=== PATIENT | male | born 1970 | race African-American/Black ===

== ENCOUNTER 2019-03-26 07:33 | Emergency (ER) | payer MEDICAID ==
[~2019-03-26] VITALS: Ht 172.7 cm; Wt 73.0 kg
[~2019-03-26 07:33] MED LIST: BUPR100T5 PO; QUET25TA PO
[2019-03-26] MEDS ORDERED: ONDANSETRON HCL 4MG/2ML INJ IV STA (08:57)
[2019-03-26] MEDS ORDERED: SODIUM CHLORIDE 0.9% 1,000 ML IV ONE (08:57)
[2019-03-26] MEDS ORDERED: PANTOPRAZOLE SODIUM 40 MG/VIAL IV STA (08:57)
[2019-03-26] MEDS ORDERED: MORPHINE SULFATE 2 MG/ML CPJ (NOT FOR IM USE) IV ONE (09:15)
[2019-03-26 09:38] LABS: HEMATOCRIT. 38.5 % (42.0-52.0); MEAN CORPUSCULAR HEMOGLOBIN 30.8 pg (28.0-32.0); MEAN CORPUSCULAR VOLUME 91.1 fL (80.0-94.0); MEAN PLATELET VOLUME 9.1 fl (7.4-10.4); PLATELET 216 x1000/uL (130-400); RED BLOOD CELL COUNT 4.23 mill/uL (4.7-6.1); RED CELL DISTRIBUTION WIDTH 13.1 % (11.6-14.6)
[2019-03-26 09:40] LABS: CHLORIDE 104 mEq/L (98-107)
[2019-03-26 09:42] LABS: INR 1.1; PROTHROMBIN TIME 11.5 sec (9.6-11.0)
[2019-03-26 10:43] LABS: PLATELET ESTIMATE NORMAL
[2019-03-26 11:17] LABS: CLARITY URINE CLEAR (CLEAR); COLOR URINE YELLOW (YELLOW); KETONES URINE TRACE (NEGATIVE); LEUKOCYTE ESTERASE URINE NEGATIVE (NEGATIVE); NITRITE URINE NEGATIVE (NEGATIVE); OCCULT BLOOD URINE NEGATIVE (NEGATIVE); PH URINE 7.5 (4.5-8.0); PROTEIN URINE NEGATIVE (NEGATIVE); SPECIFIC GRAVITY URINE 1.022 (1.005-1.030)
[2019-03-26 12:44] VITALS: BP 127/83
== END 2019-03-26 12:52 | disposition home or self-care (01) ==
LOC: ER 07:33
DX: R10.84 Generalized abdominal pain (principal); J06.9 Acute upper respiratory infection, unspecified; F20.9 Schizophrenia, unspecified; Z88.8 Allergy status to other drugs, medicaments and biological substances
CPT/HCPCS: 36415; 71045; 74176; 80053; 81003; 83690; 85025; 85610; 87804; 96361; 96374; 96375; 99284; C9113; J2270; J2405; J7030

== ENCOUNTER 2019-03-29 10:22 | Emergency (ER) | payer MEDICAID ==
[~2019-03-29] VITALS: Ht 172.7 cm; Wt 75.0 kg
[2019-03-29 10:42] VITALS: BP 116/72
[2019-03-29] MEDS ORDERED: ACETAMINOPHEN 500MG TABLET PO ONE (12:15)
== END 2019-03-29 14:38 | disposition home or self-care (01) ==
LOC: ER 10:22
DX: L84 Corns and callosities (principal); M25.774 Osteophyte, right foot; F20.9 Schizophrenia, unspecified; Z88.8 Allergy status to other drugs, medicaments and biological substances
CPT/HCPCS: 99282

== ENCOUNTER 2019-04-02 22:27 | Emergency (ER) | payer MEDICAID ==
[~2019-04-02] VITALS: Ht 172.7 cm; Wt 75.0 kg
[2019-04-03 03:36] LABS: CHLORIDE 105 mEq/L (98-107)
[2019-04-03 03:37] LABS: BASOPHILS % 0.5 % (0.0-2.0); EOSINOPHILS % 2.4 % (0.0-5.0); HEMATOCRIT. 38.2 % (42.0-52.0); HEMOGLOBIN. 12.7 g/dL (14.0-18.0); LYMPHOCYTES % 54.2 % (20.0-50.0); MEAN CORPUSCULAR HEMOGLOBIN 30.2 pg (28.0-32.0); MEAN CORPUSCULAR VOLUME 90.6 fL (80.0-94.0); MEAN PLATELET VOLUME 9.2 fl (7.4-10.4); MONOCYTES % 13.8 % (2.0-8.0); NEUTROPHILS % 29.1 % (40.0-76.0); PLATELET 188 x1000/uL (130-400); RED BLOOD CELL COUNT 4.22 mill/uL (4.7-6.1); RED CELL DISTRIBUTION WIDTH 13.6 % (11.6-14.6)
[2019-04-03 03:41] LABS: ETHANOL BLOOD < 10 mg/dL
[2019-04-03 06:02] LABS: CLARITY URINE CLOUDY (CLEAR); COLOR URINE YELLOW (YELLOW); KETONES URINE NEGATIVE (NEGATIVE); LEUKOCYTE ESTERASE URINE NEGATIVE (NEGATIVE); NITRITE URINE NEGATIVE (NEGATIVE); OCCULT BLOOD URINE NEGATIVE (NEGATIVE); PROTEIN URINE NEGATIVE (NEGATIVE); SPECIFIC GRAVITY URINE 1.023 (1.005-1.030)
[2019-04-03 06:22] LABS: *AMPHETAMINES SCREEN URINE NEGATIVE (NEGATIVE); CANNABINOID URINE SCREEN NEGATIVE (NEGATIVE); METHADONE URINE SCREEN NEGATIVE (NEGATIVE); OPIATES URINE SCREEN NEGATIVE (NEGATIVE); PHENCYCLIDINE URINE SCREEN NEGATIVE (NEGATIVE)
[2019-04-03 06:23] LABS: *BARBITURATES SCREEN URINE NEGATIVE (NEGATIVE); *BENZODIAZEPINES SCREEN URINE NEGATIVE (NEGATIVE); *COCAINE SCREEN URINE NEGATIVE (NEGATIVE)
[2019-04-03 20:03] VITALS: BP 133/53
== END 2019-04-03 20:13 ==
LOC: ER 22:27
DX: R45.851 Suicidal ideations (principal); F31.9 Bipolar disorder, unspecified; F20.9 Schizophrenia, unspecified; Z88.8 Allergy status to other drugs, medicaments and biological substances
CPT/HCPCS: 36415; 80053; 80305; 80320; 81003; 85025; 99283; 99285; G0480

== ENCOUNTER 2019-04-12 07:06 | Emergency (ER) | payer MEDICAID ==
[~2019-04-12] VITALS: Ht 172.7 cm; Wt 73.0 kg
[2019-04-12 07:26] VITALS: BP 134/55
[2019-04-12] MEDS ORDERED: IBUPROFEN 600MG TABLET PO ONE (08:00)
== END 2019-04-12 07:57 | disposition home or self-care (01) ==
LOC: ER 07:34
DX: R22.0 Localized swelling, mass and lump, head (principal); F32.9 Major depressive disorder, single episode, unspecified; F17.200 Nicotine dependence, unspecified, uncomplicated; Z88.8 Allergy status to other drugs, medicaments and biological substances
CPT/HCPCS: 99282

== ENCOUNTER 2019-04-16 17:54 | Emergency (ER) | payer MEDICAID ==
[~2019-04-16] VITALS: Ht 172.7 cm; Wt 73.0 kg
[2019-04-16] MEDS ORDERED: ONDANSETRON HCL 4MG/2ML INJ IV STA (21:01)
[2019-04-16] MEDS ORDERED: SODIUM CHLORIDE 0.9% 1,000 ML IV ONE (21:01)
[2019-04-16 21:21] LABS: BASOPHILS % 0.9 % (0.0-2.0); EOSINOPHILS % 1.5 % (0.0-5.0); HEMATOCRIT. 37.2 % (42.0-52.0); HEMOGLOBIN. 12.6 g/dL (14.0-18.0); LYMPHOCYTES % 46.7 % (20.0-50.0); MEAN CORPUSCULAR HEMOGLOBIN 30.2 pg (28.0-32.0); MEAN CORPUSCULAR VOLUME 89.4 fL (80.0-94.0); MEAN PLATELET VOLUME 8.9 fl (7.4-10.4); MONOCYTES % 12.4 % (2.0-8.0); NEUTROPHILS % 38.5 % (40.0-76.0); PLATELET 211 x1000/uL (130-400); RED BLOOD CELL COUNT 4.16 mill/uL (4.7-6.1); RED CELL DISTRIBUTION WIDTH 13.4 % (11.6-14.6)
[2019-04-16 21:28] LABS: CHLORIDE 106 mEq/L (98-107)
[2019-04-16] MEDS ORDERED: KETOROLAC 30MG/ML VIAL IV ONE (21:45)
[2019-04-16 23:04] VITALS: BP 137/82
== END 2019-04-16 23:05 | disposition home or self-care (01) ==
LOC: ER 18:14
DX: R51 Headache (principal); R11.2 Nausea with vomiting, unspecified; D50.9 Iron deficiency anemia, unspecified; F32.9 Major depressive disorder, single episode, unspecified; F17.210 Nicotine dependence, cigarettes, uncomplicated; Z88.8 Allergy status to other drugs, medicaments and biological substances
CPT/HCPCS: 36415; 80053; 83690; 85025; 93005; 96361; 96374; 96375; 99284; J1885; J2405; J7030

== ENCOUNTER 2021-02-24 09:02 | Emergency (ER) | payer MEDICAID ==
[~2021-02-24] VITALS: Ht 172.7 cm; Wt 82.0 kg
[2021-02-24] MEDS ORDERED: ONDANSETRON HCL 4MG/2ML INJ IV STA (09:20)
[2021-02-24] MEDS ORDERED: KETOROLAC 30MG/ML VIAL IV STA (09:20)
[2021-02-24] MEDS ORDERED: SODIUM CHLORIDE 0.9% 1,000 ML IV ONE (09:30)
[2021-02-24 09:50] LABS: BASOPHILS % 1.2 % (0.0-2.0); EOSINOPHILS % 1.8 % (0.0-5.0); HEMOGLOBIN. 13.9 g/dL (14.0-18.0); LYMPHOCYTES % 35.5 % (20.0-50.0); MEAN CORPUSCULAR HEMOGLOBIN 30.9 pg (28.0-32.0); MEAN CORPUSCULAR VOLUME 93.1 fL (80.0-94.0); MEAN PLATELET VOLUME 9.4 fl (7.4-10.4); NEUTROPHILS % 47.5 % (40.0-76.0); PLATELET 186 x1000/uL (130-400); RED BLOOD CELL COUNT 4.51 mill/uL (4.7-6.1)
[2021-02-24 09:57] LABS: CHLORIDE 106 mEq/L (98-107)
[2021-02-24 10:01] LABS: ETHANOL BLOOD < 10 mg/dL
[2021-02-24 11:00] VITALS: BP 116/92
[2021-02-24] MEDS ORDERED: IBUP-2030 MT (13:02)
[2021-02-24] MEDS ORDERED: ONDA4TAB11 PO (13:02)
== END 2021-02-24 13:49 | disposition home or self-care (01) ==
LOC: ER 09:02
DX: R07.89 Other chest pain (principal); F12.10 Cannabis abuse, uncomplicated; Z88.8 Allergy status to other drugs, medicaments and biological substances; Z86.59 Personal history of other mental and behavioral disorders
CPT/HCPCS: 36415; 71045; 80053; 80320; 83690; 83880; 84484; 85025; 93005; 96361; 96374; 96375; 99285; J1885; J2405; J7030; G0480

== ENCOUNTER 2021-03-16 22:40 | Emergency (ER) | payer MEDICAID ==
[~2021-03-16] VITALS: Ht 172.7 cm; Wt 84.0 kg
[~2021-03-16 22:40] MED LIST changes: +IBUP-2030 MT; +ONDA4TAB11 PO
[2021-03-16 22:47] VITALS: BP 126/76
== END 2021-03-17 08:05 | disposition home or self-care (01) ==
LOC: ER 22:40
DX: M79.671 Pain in right foot (principal); F31.9 Bipolar disorder, unspecified; F20.9 Schizophrenia, unspecified; F12.10 Cannabis abuse, uncomplicated; Z79.899 Other long term (current) drug therapy
CPT/HCPCS: 99281

== ENCOUNTER 2021-03-25 01:13 | Emergency (ER) | payer MEDICAID ==
[~2021-03-25] VITALS: Ht 172.7 cm; Wt 84.0 kg
[2021-03-25 01:24] VITALS: BP 118/74
[2021-03-25] MEDS ORDERED: IBUPROFEN 600MG TABLET PO STA (01:31)
[2021-03-25] MEDS ORDERED: IBUP-2029 PO (02:19)
== END 2021-03-25 02:43 | disposition home or self-care (01) ==
LOC: ER 01:13
DX: M79.671 Pain in right foot (principal); L84 Corns and callosities; F12.10 Cannabis abuse, uncomplicated; Z88.8 Allergy status to other drugs, medicaments and biological substances
CPT/HCPCS: 99282

== ENCOUNTER 2021-04-22 01:32 | Emergency (ER) | payer MEDICAID ==
[~2021-04-22 01:32] MED LIST changes: +IBUP-2029 PO
== END 2021-04-22 02:10 | disposition left against medical advice (07) ==
LOC: ER 01:32
DX: Z53.21 Procedure and treatment not carried out due to patient leaving prior to being seen by health care provider (principal)

== ENCOUNTER 2022-08-31 22:57 | Emergency (ER) | payer MEDICAID | END 2022-08-31 23:10 | disposition left against medical advice (07) | LOC: ER 22:57 | DX: Z53.21 Procedure and treatment not carried out due to patient leaving prior to being seen by health care provider (principal) | CPT/HCPCS: 99281 ==

== ENCOUNTER 2022-09-04 03:20 | Emergency (ER) | payer MEDICAID | END 2022-09-04 04:30 | disposition left against medical advice (07) | LOC: ER 03:20 | DX: Z53.21 Procedure and treatment not carried out due to patient leaving prior to being seen by health care provider (principal) | CPT/HCPCS: 99281 ==